=== PATIENT | female | born 1960 | race Caucasian/White ===

== ENCOUNTER 2016-05-24 18:33 | Emergency (ER) | payer OTHER ==
[~2016-05-24] VITALS: Ht 167.6 cm; Wt 55.9 kg
[2016-05-24 19:00] VITALS: BP 126/69; PULSE 96; RESP 16; O2SAT 99
[2016-05-24 19:31] LABS: BASOPHILS % (AUTO) 0.6 % (0-3); EOSINOPHILS % (AUTO) 0.8 % (0-5); Mean Corpuscular Hemoglobin 28.7 pg (27.0-35.0); Mean Corpuscular Volume 90.1 fL (81-100); NEUTROPHILS % (AUTO) 45.6 % (40-74); Platelet Count 325 bil/L (150-400)
--- NOTE | 2016-05-24 19:46 | ED.REPORT ---
HPI-General Illness Date of Service May 24, 2016 ED Provider: Dr. Mai Pt is a 55 y/o female w/ a hx of MS presenting to the ED c/o N/V/D onset 2 days ago. She decided to come in today because she became constipated after her episode of diarrhea today. Pt denies fever, chills, abdominal pain, bloody stool , melena, CP, SOB, cough, flank pain. She has been able to drink water today. Nursing Notes Stated Complaint: FLU SYMPTOMS Chief Complaint: General Complaint Nursing Notes Reviewed: Yes Allergies: Coded Allergies: aspirin (Verified Allergy, Severe, HIVES, 05/24/16) adhesive (Verified Allergy, Unknown, 05/24/16) Scheduled PRN Ondansetron ODT (Ondansetron ODT) 8 Mg Tab.rapdis 8 MG PO QID PRN PRN For Nausea General Time Seen by MD: 19:46 Chief Complaint Other (NVD) Hx Obtained From: Patient Arrived By: Walk-in Sudden in Onset?: No Onset Occurred: 2 days ago Symptom Duration: Since onset Severity: Current: No pain currently Severity: Maximum: No pain Past Medical History Past Medical History multiple sclerosis, osteoporosis Past Surgical History bunionectomy, left hallux Family History arthritis, cancer Smoking History Former Smoker Social History Alcohol Use: Denies alcohol use Drug Use: Denies drug use Ambulatory Status Independent Review of Systems Full Review of Systems Constitutional: Denies: Chills, Fever Respiratory: Denies: Non-productive cough, Shortness of breath Cardiovascular: Denies: Chest pain GI: Reports: Diarrhea, Nausea, Vomiting, Denies: Abdominal pain, Bloody/tarry stool, Melena Female: Denies: Flank pain Complete sys rev & neg: except as marked. Physical Exam Vital Signs Vital Signs Date Time Temp Pulse Resp B/P Pulse Ox O2 Delivery O2 Flow Rate FiO2 05/24/16 20:48 36.6 95 18 128/77 98 Room Air 05/24/16 19:00 36.8 96 16 126/69 99 Room Air Initial VS: Reviewed, Vital signs normal Head / Eyes: Atraumatic, Normocephalic, PERRL Neck: Supple, Full range of motion Respiratory: Breath sounds normal, Clear to auscultation, No respiratory distress Cardiovascular: Regular rate & rhythm, Heart sounds normal, Intact distal pulses Abdomen / GI: Soft, Non-tender, No guarding, No rebound, No distention Extremities: Vascular intact, Neuro intact, No swelling, No tenderness Skin: Warm, Dry, No cyanosis Neurologic: Alert, Oriented, Nonfocal Psychiatric: Mood/affect normal, Behavior normal, Normal thought content General/Constitutional: Awake, Alert, No acute distress, Well appearing, Cooperative, Not toxic appearing ENT: Atraumatic, Airway patent, Pharynx NL Mouth: Positive: Mucous membranes dry (mild) Interpretation & Diagnostics Lab Results Interpretation Result Diagram: 05/24/16192005/24/161920 Test 05/24/16 19:21 White Blood Count 4.9th/mm3 (3.8-10.1) Red Blood Count 3.73mil/mm3 (3.90-5.20) Hemoglobin 10.7g/dL (12.0-15.6) Hematocrit 33.6% (35.0-46.0) Mean Corpuscular Volume 90.1fL (81-100) Mean Corpuscular Hemoglobin 28.7pg (27.0-35.0) Mean Corpuscular Hemoglobin Concent 31.8% (32.0-37.0) Red Cell Distribution Width 14.9% (12.3-15.4) Platelet Count 325bil/L (150-400) Neutrophils (%) (Auto) 45.6% (40-74) Lymphocytes (%) (Auto) 41.0% (14-46) Monocytes (%) (Auto) 12.0% (4-12) Eosinophils (%) (Auto) 0.8% (0-5) Basophils (%) (Auto) 0.6% (0-3) Sodium Level 139mEq/L (134-144) Potassium Level 3.4mEq/L (3.5-5.2) Chloride Level 100mEq/L (97-108) Carbon Dioxide Level 25mmol/L (18-29) Blood Urea Nitrogen 7mg/dL (6-24) Creatinine 0.72mg/dL (0.57-1.00) Estimat Glomerular Filtration Rate 121mL/min (>59) Glucose Level 105mg/dL (60-99) Calcium Level 9.0mg/dL (8.5-10.1) Magnesium Level 2.0mg/dL (1.6-2.6) Total Bilirubin 0.2mg/dL (0.0-1.2) Aspartate Amino Transf (AST/SGOT) 28U/L (0-50) Alanine Aminotransferase (ALT/SGPT) 32U/L (0-32) Alkaline Phosphatase 82U/L (25-150) Total Protein 7.2g/dL (6.4-8.4) Albumin 4.5g/dL (3.4-5.0) Lipase 31U/L (13-60) Hold Schulz Top Tube Received (Received) Re-Eval/Medical Decision Med Decision/Clinical Course 55-year-old recovering from vomiting and diarrheal illness, now briefly constipated. Vomiting under control with Zofran and discharged home with Zofran. Labs are reassuring and benign. Source of Hx: Old records Time of Eval: 20:30 Re-Evaluation/Progress Note: Pt rechecked. Informed pt of plan for treatment. Pt understands and agrees with plan for treatment. F/U instructions and RTER warnings given. All questions addressed. Counseled Regarding: Diagnosis, Lab results, Need for follow-up, When/why to return to ED Discharge & Departure Primary Impression: Gastroenteritis Disposition: Home Discharge Condition All VS Reviewed: Yes Condition: Stable Patient Instructions: Acute Diarrhea (ED), Acute Nausea and Vomiting (ED), Gastroenteritis (ED) Additional Instructions: Drink clear fluids, at least some of which should be electrolyte replacement fluids such as Pedialyte. Powerade or Gatorade would be acceptable choices also. Drink enough fluid so that you are making light clear urine, so that you can tell that you are again rehydrated. Zofran up to four times daily if needed for nausea Follow-up with your doctor in the office Return if any immediate issues, particularly high fever, bleeding, or other new symptoms of concern. Referrals: Courtney Prieto MD (PCP) Scribe Attestation Portions of this note were transcribed by Justice Adhikari. I, Dr. Mai personally performed the history, physical exam and medical decision-making; I reviewed and confirmed the accuracy of the information in the transcribed note. Signed by Madhuri Keita, 05/24/16 - 2099 copies to: Courtney Prieto MD, Christopher W MD May 24, 2016 19:46 JUSTICE ADHIKARI May 24, 2016 20:09
[2016-05-24] MEDS ORDERED: ONDA8TAB10 PO (20:27)
[2016-05-24 20:48] VITALS: BP 128/77; PULSE 95; RESP 18; O2SAT 98
== END 2016-05-24 20:49 | disposition home or self-care (01) ==
LOC: SED 18:33
DX: K52.9 Noninfective gastroenteritis and colitis, unspecified (principal); K59.00 Constipation, unspecified; G35 Multiple sclerosis; Z87.891 Personal history of nicotine dependence; Z88.6 Allergy status to analgesic agent

== ENCOUNTER 2016-10-17 20:53 | Emergency (ER) | payer OTHER ==
[~2016-10-17] VITALS: Ht 170.2 cm; Wt 62.7 kg
[~2016-10-17 20:53] MED LIST: ONDA8TAB10 PO
[2016-10-17 20:57] VITALS: BP 133/77; PULSE 97; RESP 16; O2SAT 99
[2016-10-19] MEDS ORDERED: CALCARB PO (15:22)
[2016-10-19] MEDS ORDERED: RANI150C4 PO (15:22)
[2016-10-19] MEDS ORDERED: VENL100T3 PO (15:22)
[2016-10-19] MEDS ORDERED: AMT25T PO (15:22)
[2016-10-19] MEDS ORDERED: TIZA4TAB4 PO (15:22)
[2016-10-19] MEDS ORDERED: VENL50TA3 PO (15:22)
[2016-10-19] MEDS ORDERED: TIOT18CA3 IH (15:22)
[2016-10-19] MEDS ORDERED: CHOL5000 PO (15:22)
== END 2016-10-17 22:38 | disposition left against medical advice (07) ==
LOC: SED 20:53
DX: M79.604 Pain in right leg (principal); Z53.21 Procedure and treatment not carried out due to patient leaving prior to being seen by health care provider

== ENCOUNTER → 2016-10-20 | Day surgery (SDC) | payer OTHER ==
[~2016-10-20] VITALS: Ht 162.6 cm; Wt 57.6 kg
[~2016-10-20] MED LIST changes: +AMT25T PO; +CALCARB PO; +CHOL5000 PO; +Lactated Ringer's 1,000 ML IV ONE; +Lactated Ringer's 1,000 ML IV SCH; +MetoCLOpramide 5 mg/mL 2 mL Inj IVPUSH PRN; +Ondansetron 2 mg/mL 2 mL Inj IVPUSH PRN; +Propofol 10,000 mCg/mL 20 mL Inj ONE; +RANI150C4 PO; +TIOT18CA3 IH; +TIZA4TAB4 PO; +VENL100T3 PO; +VENL50TA3 PO
[2016-10-20 12:01] VITALS: BP 113/65; PULSE 89; O2SAT 94
[2016-10-20 13:05] VITALS: BP 113/53; PULSE 81; RESP 16; O2SAT 100
--- NOTE | 2016-10-20 14:02 | ENDO ---
[address] [address] ENDOSCOPY PROCEDURE PATIENT: AXEL BHAGAT : 1960 MR#: [id number] ADMIT: 10/20/2016 JOB ID: [id number] DATE OF SERVICE: 10/20/2016 TYPE OF OPERATION: Colonoscopy. PREOPERATIVE DIAGNOSIS: History of adenoma polyps and constipation. POSTOPERATIVE DIAGNOSIS: Normal colonoscopy. ANESTHESIA: Monitored anesthesia care. COMPLICATIONS: None. BLOOD LOSS: Minimal. DESCRIPTION OF PROCEDURE: After risks and benefits explained to the patient, informed consent was obtained. After anesthesia administered, colonoscope was then inserted from the rectum to cecum. Mucosa carefully examined. Prep of the patient was fair. After the procedure was done, the scope withdrawn, procedure terminated. FINDINGS: Upon inspection of the anus, no masses, hemorrhoids, ulcers, fissures that were seen. Throughout the entire examination, no polyps, masses or lesions. Retroflexion was normal. IMPRESSION: Normal colonoscopy. RECOMMENDATIONS: Repeat colonoscopy in five years given history of tubular adenoma polyps. Follow up with GI clinic as needed.
--- NOTE | 2016-10-20 16:28 | PCM.ANEP1 ---
Post Anesthesia PACU Phase 1 Assessment Vital Signs Vital Signs Date Time Temp Pulse Resp B/P Pulse Ox O2 Delivery O2 Flow Rate FiO2 10/20/16 13:05 81 16 113/53 100 Room Air 10/20/16 12:01 36.6 89 113/65 94 Room Air Anesthetic Administered: MAC Level of Alertness: Awake, talking CARRILLO's with Equal Strength: Yes Pain: No Nausea or Vomiting: No CV Function & Hydration Stable: No Airway Device: Oxygen Delivery: Room Air Lungs: Clear to Auscultation, Normal Air Movement Dermatome Level: Full Sensation PACU Phase 2 Assessment Complications: No Follow up Care: N/A Patient Instructions Provided: N/A Lam Mary MD Oct 20, 2016 16:28
--- NOTE | 2016-10-20 16:28 | PCM.HPANE ---
Patient Data Surgeon Admitting Provider: Attending Provider:Lai Chavez MD Primary Care Physician:Courtney Prieto MD Other Provider:[facility] Reason for Visit Constipation Ht/WT & BMI Body Mass Index Allergies Coded Allergies: aspirin (Verified Allergy, Severe, HIVES, 10/17/16) adhesive (Verified Allergy, Unknown, 10/17/16) Past Anesthesia History Anesthesia History: Denies:: Abnormal Airway, Anesthesia Reactions, Difficult Intubation, Fam Anesthesia Reaction, Fam Malignant Hypertherm, Malignant Hyperthermia Diabetes History Hx Diabetes?: No Medications Reported Medications Venlafaxine 50 Mg Zimxld56 Mg PO EVENING Ref 0 10/19/16 Venlafaxine 100 Mg [id number] Mg PO MORNING Ref 0 10/19/16 Tizanidine 4 Mg Tablet8 Mg PO BID 10/19/16 Tiotropium Lyman (Spiriva)18 Mcg Cap.w.dev18 Mcg IH DAILY #1 PKG Ref 0 10/19/16 Ranitidine 150 Mg [id number] Mg PO BID Ref 0 10/19/16 Cholecalciferol (Vitamin D3) (Vitamin D3)5,000 Unit Capsule5,000 Unit PO DAILY 10/19/16 [Calcarb] No Conflict Check1,500 Mg PO BID 10/19/16 Amitriptyline 25 Mg Tab25 Mg PO HS Ref 0 10/19/16 Discontinued Scripts Ondansetron ODT 8 Mg Tab.rapdis8 Mg PO QID PRN For Nausea #20 TABLET Prov:Navi Mai MD 05/24/16 History History of ENT Problems?: Yes HEENT History: Denies:: Cataracts Dysphagia Sinus Problem Denture Type: None Teeth Condition: Within Normal Limits Hx of Heart Problems?: No Cardiovascular History: Denies:: AICD Abdominal Aortic Aneurism Atrial Fibrillation Cardiac Surgery Chest Pain Congestive Heart Failure Coronary Artery Disease Edema Heart Murmur Hypertension Irregular Heartbeat Pacemaker Peripheral Vascular Rheumatic Fever Thrombophlebitis Valvular Heart Disease Hx of Respiratory Problem?: No Respiratory History: Denies:: Asthma COPD Chest Surgery Cough Dyspnea Emphysema Hemoptysis Oxygen Administration Pneumonia Pulmonary Embolism Tuberculosis Use of C-PAP Machine Use of Inhalers / NEBS Hx Neurologic Problems?: Yes Neurological History: Positive for:: Headaches (hx migraines, 5 x q month. Takes 800 mg of Ibuprofen ) Multiple Sclerosis (dx age 36. Not on meds for it. ) Denies:: Alzheimer's Disease CVA Dementia Dizziness Parkinson's Disease Peripheral Neuropathy Seizures TIA Hx of GI Problems?: No Gastrointestinal History: Denies:: Cirrhosis Diverticulitis Gall Bladder Disease Gastroesphageal Reflux Gastrointestinal Bleeding Heartburn Hepatitis Hiatal Hernia Liver Disease Rectal Bleeding Hx of Problems?: No Genitourinary History: Denies:: HX of Hemodialysis Kidney Stones Urinary Tract Infection HX of Peritoneal Dialysis: No Female Hx: Denies:: Currently Endometriosis Pelvic Inflammatory Problems with Breasts? Skin History: Denies:: History Skin Disorders? Pressure Ulcers Hx Musculoskeletal Problems?: No Musculoskeletal History: Denies:: Back Injury Degenerative Joint Fibromyalgia Joint Replacement Musculoskeletal Trauma Myasthenia Gravis Osteoarthritis Rheumatoid Arthritis Systemic Lupus Psycho Social History: Positive for:: Anxiety ("runs in family") Bipolar Disorder Hx Depression Suicide Attempt (attempted x 5 od. Last time 10 years ago.) Hx Surgeries?: Yes (Emili michelle foot,) Other History: Denies:: Cancer Endocrine Disease Hospitalization Thyroid Disease History Blood Transfusions: Denies:: Accept Blood Products? Blood Transfuse Reaction Blood Transfusions Hx Diabetes: No Hx Alcohol Use: NoHx Substance Use: No Smoking Status: Former Smoker Stop/Bang Risk Assessment Category Category 1A: Patient has history of documented sleep apnea, and HAS NOT received any narcotic, sedative or anesthesia administration during this stay. Category 1B: Patient has history of documented sleep apnea, and HAS received any narcotic , sedative or anesthesia administration during this stay Category 2: Patient has SUSPECTED Obstructive Sleep Apnea, and HAS received any narcotic , sedative or anesthesia administration during this stay. Category 3: Patient has SUSPECTED Obstructive Sleep Apnea and HAS NOT received narcotic, sedative or anesthesia administration during this stay. Category 4: Outpatient in Procedural Areas with known sleep apnea or who screen positive for High Risk via the STOP/BANG questionnaire. Exam Exam General Appearance: Alert, Oriented X3, Cooperative, No Acute Distress HEENT/AIRWAY: MP 2 Lungs: Clear to Auscultation, Normal Air Movement Heart: Exam Unremarkable, Regular Rate/Rhythm, No Murmurs/Rubs/Gallops Plan Impression Patient chart reviewed, patient interviewed and anesthestic plan with risks, benefits, and alternatives discussed, and informed consent obtained. NPO per Anesth. Guidelines: Yes ASA Physical Status: ASA2 Mod Systemic Disease Anesthetic Plan: MAC Bene/Risks/Altern/Consents: Yes HP Complete Prior to Induction: Yes Lam Mary MD Oct 20, 2016 07:25
== END | disposition home or self-care (01) ==
LOC: END 00:23
PROVIDERS: ATTEND Internal Medicine Gastroenterology
DX: K59.00 Constipation, unspecified (principal); Z86.010 Personal history of colon polyps; G35 Multiple sclerosis; E55.9 Vitamin D deficiency, unspecified; J44.9 Chronic obstructive pulmonary disease, unspecified; M81.0 Age-related osteoporosis without current pathological fracture; F31.9 Bipolar disorder, unspecified; Z87.891 Personal history of nicotine dependence; Z79.51 Long term (current) use of inhaled steroids
CPT/HCPCS: 45378; J7120